=== PATIENT | male | born 2000 | race African-American/Black ===

== ENCOUNTER → 2022-08-31 | Outpatient (CLI) | payer OTHER ==
--- NOTE | 2022-08-31 09:05 | Diagnostic Imaging Report ---
PROCEDURE: US Gallbladder. TECHNIQUE: Multiple real-time grayscale images were obtained over the right upper quadrant in various projections. INDICATION: Left lower quadrant pain COMPARISON: None available FINDINGS: The liver is at upper limits of normal in size measuring just over 18 cm. The liver demonstrates diffusely increased echogenicity throughout with poor acoustic transmission. No focal hepatic mass. Normal direction of flow within the main portal vein. The gallbladder is unremarkable. Common bile duct is within normal limits measuring 0.4 cm. The pancreas is not well seen secondary to overlying bowel gas and patient body habitus. The visualized portion of the abdominal aorta and inferior vena cava are unremarkable. The right kidney is unremarkable. No significant free fluid. IMPRESSION: Fatty infiltration of the liver. Otherwise, unremarkable examination. Dictated by: Dictated on workstation # [id number]
== END ==
LOC: RAD 07:30
PROVIDERS: ATTEND Nurse Practitioner Family
DX: K76.0 Fatty (change of) liver, not elsewhere classified (principal); E66.8 Other obesity; J45.998 Other asthma; G44.89 Other headache syndrome; R74.8 Abnormal levels of other serum enzymes; R10.83 Colic; R35.0 Frequency of micturition
CPT/HCPCS: 76705

== ENCOUNTER → 2022-09-10 | Outpatient (CLI) | payer OTHER ==
[~2022-09-10] MED LIST: CATHETER FLUSH 10 ML SYR IVP PRN
--- NOTE | 2022-09-10 11:36 | Diagnostic Imaging Report ---
INDICATION: Left lower quadrant pain. TECHNIQUE: The patient received 5.4 mCi of technetium 99M Choletec intravenously. After 45 minutes of scanning, the patient ingested Ensure for fatty meal gallbladder stimulation with an additional 60 minutes acquisitions performed including gallbladder ejection quantification. FINDINGS: There was prompt homogenous distribution of the radiopharmacy throughout the liver parenchyma. Activity began to accumulate within the central biliary ducts as well as the gallbladder within 10 minutes. Within 30 minutes, activity had spilled through the patent extrahepatic duct into the proximal bowel. With fatty meal stimulation, there was good gallbladder contractility. The ejection fraction of 47.2% is within normal limits for fatty meal stimulation. IMPRESSION: Normal Nuclear Medicine HIDA scan and gallbladder ejection fraction. Dictated by: Dictated on workstation # [id number]
== END ==
LOC: CARD 07:42
PROVIDERS: ATTEND Nurse Practitioner Family
DX: R10.32 Left lower quadrant pain (principal); R74.8 Abnormal levels of other serum enzymes; R10.83 Colic; E73.8 Other lactose intolerance; R35.0 Frequency of micturition; E66.8 Other obesity; J45.998 Other asthma; G44.89 Other headache syndrome
CPT/HCPCS: 78227